=== PATIENT | male | born 1955 | race Caucasian/White ===

== ENCOUNTER 2020-09-11 08:21 | Emergency (ER) | payer MEDICAID ==
--- NOTE | 2020-09-11 08:39 | ED Physician Documentation ---
PD HPI DYSPNEA - Stated complaint Stated Complaint: SWELLING LEGS/ARMS. HIGH BP - Chief complaint Chief Complaint: Cardiac - History obtained from History obtained from: Patient - History of Present Illness Timing - onset: How many weeks ago (3-4) Timing - onset during: Light activity Timing - duration: Weeks (he states has noted onset of edema in lower legs that has increased and worsened to have marked edema in legs, up to testicles, and now even hands and some of face. Some dyspnea on exertion. No chest pain. Denies orthopnea.) Timing - details: Gradual onset, Still present Inciting event(s): No: URI, Immobilization/travel Improved by: Rest. No: Sitting up Worsened by: Exertion. No: Laying flat Associated symptoms: Bilateral edema. No: Fever, Cough, Wheezing, Chest pain / discomfort Similar symptoms before: Has not had sx before Recently seen: Not recently seen, Other (had COVID vaccine 2 months ago.) Review of Systems Constitutional: denies: Fever, Chills Nose: denies: Rhinorrhea / runny nose, Congestion Throat: denies: Sore throat Cardiac: reports: Pedal edema. denies: Chest pain / pressure, Palpitations, Calf pain Respiratory: reports: Dyspnea. denies: Cough, Wheezing GI: denies: Nausea, Vomiting, Diarrhea Skin: denies: Rash, Lesions Neurologic: reports: Generalized weakness, Headache. denies: Focal weakness, Numbness Psychiatric: denies: Depressed, Suicidal Endocrine: reports: Weight gain PD PAST MEDICAL HISTORY - Past Medical History Cardiovascular: None Respiratory: None Neuro: None Endocrine/Autoimmune: None GI: None - Present Medications Home Medications: Ambulatory Orders Medication Instructions Recorded Confirmed Furosemide [Lasix] 20 mg PO DAILY 30 Days #30 tablet 09/11/20 Losartan Potassium 25 mg PO DAILY 30 Days #30 tablet 09/11/20 - Allergies Allergies/Adverse Reactions: Allergies Allergy/AdvReac Type Severity Reaction Status Date / Time No Known Drug Allergies Allergy Verified 09/11/20 11:20 PD ED PE NORMAL - Vitals Vital signs reviewed: Yes - General General: Alert and oriented X 3, No acute distress, Well developed/nourished - HEENT HEENT: Moist mucous membranes, Pharynx benign - Neck Neck: Supple, no meningeal sign, No adenopathy - Cardiac Cardiac: RRR, No murmur - Respiratory Respiratory: Clear bilaterally - Abdomen Abdomen: Soft, Non tender - Male Male : Deferred - Rectal Rectal: Deferred - Back Back: No CVA TTP - Derm Derm: Normal color, Warm and dry - Extremities Extremities: No calf tenderness / cord, Other (2-3+ edema in both legs up to thighs. Some edema in hands and forearms. Puffy around eyes and cheeks. No JVD noted per se. ) - Neuro Neuro: Alert and oriented X 3, No motor deficit, Normal speech Eye Opening: Spontaneous Motor: Obeys Commands Verbal: Oriented GCS Score: 15 Results - Vitals Vitals: Vital Signs - 24 hr 09/11/20 09/11/20 09/11/20 08:30 09:35 11:18 Temperature 36.3 C L 36.4 C L Heart Rate 89 78 75 Respiratory 20 18 14 Rate Blood Pressure 175/101 H 168/98 H 167/127 H O2 Saturation 97 98 98 09/11/20 12:38 Temperature 36.7 C Heart Rate 65 Respiratory 16 Rate Blood Pressure 157/103 H O2 Saturation 98 Oxygen O2 Source Room air - Labs Labs: Laboratory Tests 09/11/20 09/11/20 09/11/20 09:45 09:45 09:45 WBC 6.8 RBC 4.59 L Hgb 14.9 Hct 43.5 MCV 94.8 H MCH 32.5 H MCHC 34.3 RDW 12.7 Plt Count 251 MPV 10.1 Neut # (Auto) 5.1 Lymph # (Auto) 1.1 L Jack # (Auto) 0.4 Eos # (Auto) 0.1 Baso # (Auto) 0.0 Absolute Nucleated RBC 0.00 Nucleated RBC % 0.0 Sodium 138 Potassium 4.0 Chloride 107 Carbon Dioxide 26 Anion Gap 5.0 L BUN 23 H Creatinine 1.0 Estimated GFR (MDRD) 75 L Glucose 84 Calcium 8.2 L Total Bilirubin 0.9 AST 23 ALT 16 Alkaline Phosphatase 64 Troponin I High Sens 4.0 B-Natriuretic Peptide Total Protein 4.8 L Albumin 1.7 L Globulin 3.1 Albumin/Globulin Ratio 0.5 L Lipase 36 TSH Urine Color Urine Clarity Urine pH Ur Specific [place] Urine Protein Urine Glucose (UA) Urine Ketones Urine Occult Blood Urine Nitrite Urine Bilirubin Urine Urobilinogen Ur Leukocyte Esterase Urine RBC Urine WBC Ur Squamous Epith Cells Urine Bacteria Urine Casts Ur Microscopic Review Urine Culture Comments Urine Creatinine Ur Total Protein Timed Protein/Creatinin Ratio 09/11/20 09/11/20 09/11/20 09:45 09:45 10:30 WBC RBC Hgb Hct MCV MCH MCHC RDW Plt Count MPV Neut # (Auto) Lymph # (Auto) Jack # (Auto) Eos # (Auto) Baso # (Auto) Absolute Nucleated RBC Nucleated RBC % Sodium Potassium Chloride Carbon Dioxide Anion Gap BUN Creatinine Estimated GFR (MDRD) Glucose Calcium Total Bilirubin AST ALT Alkaline Phosphatase Troponin I High Sens B-Natriuretic Peptide 57 Total Protein Albumin Globulin Albumin/Globulin Ratio Lipase TSH 2.94 Urine Color YELLOW Urine Clarity CLEAR Urine pH 5.5 Ur Specific [place]y 1.020 Urine Protein >=300 H Urine Glucose (UA) NEGATIVE Urine Ketones NEGATIVE Urine Occult Blood SMALL H Urine Nitrite NEGATIVE Urine Bilirubin NEGATIVE Urine Urobilinogen 0.2 (NORMAL) Ur Leukocyte Esterase NEGATIVE Urine RBC 0-5 Urine WBC 0-3 Ur Squamous Epith Cells NONE SEEN Urine Bacteria Rare Urine Casts 3-5 Course Granular Ur Microscopic Review INDICATED Urine Culture Comments NOT INDICATED Urine Creatinine Ur Total Protein Timed Protein/Creatinin Ratio 09/11/20 10:30 WBC RBC Hgb Hct MCV MCH MCHC RDW Plt Count MPV Neut # (Auto) Lymph # (Auto) Jack # (Auto) Eos # (Auto) Baso # (Auto) Absolute Nucleated RBC Nucleated RBC % Sodium Potassium Chloride Carbon Dioxide Anion Gap BUN Creatinine Estimated GFR (MDRD) Glucose Calcium Total Bilirubin AST ALT Alkaline Phosphatase Troponin I High Sens B-Natriuretic Peptide Total Protein Albumin Globulin Albumin/Globulin Ratio Lipase TSH Urine Color Urine Clarity Urine pH Ur Specific [place] Urine Protein Urine Glucose (UA) Urine Ketones Urine Occult Blood Urine Nitrite Urine Bilirubin Urine Urobilinogen Ur Leukocyte Esterase Urine RBC Urine WBC Ur Squamous Epith Cells Urine Bacteria Urine Casts Ur Microscopic Review Urine Culture Comments Urine Creatinine 35.1 Ur Total Protein Timed 350 Protein/Creatinin Ratio 10.0 H - Rads (name of study) chest xray Radiology: Prelim report reviewed (no infiltrates, normal vascularture.), See rad report PD MEDICAL DECISION MAKING - ED course Complexity details: reviewed results (no CHF noted. Does have low protein and albumin with large urine protein. Likely nephrotic syndrome. ), considered differential (consider CHF, renal failure, bladder outlet obstruction, allergic reaction, renal process such as nephrotic, anemia, other process. ), d/w patient, d/w customer service and sales consultant (talked with Nephrology measurement and verification engineer in [place], who does clinics at [facility], agrees with likely Dx. Hold steroids until biopsy can be done. Start Losartan and Lasix. She will have office call pt and be seen at [facility] this coming Wednesday or the following week. Asks that pt get labs checked 1 wk.) Departure - Departure Disposition: 01 Home, Self Care Clinical Impression: Generalized edema, Nephrotic syndrome Condition: Stable Record reviewed to determine appropriate education?: Yes Instructions: ED Nephrotic Syndrome Follow-Up: [facility] [Provider Group] Prescriptions: Furosemide [Lasix] 20 mg PO DAILY 30 Days #30 tablet Losartan Potassium 25 mg PO DAILY 30 Days #30 tablet Comments: I talked with the elementary spanish teacher from [place] and got guidance on the initial medications for you. She does do clinics here it would be health in the day care worker clinic. Her office will call you today to set up the soonest available appointment. This may be this coming Wednesday or if not the next clinic after that. Alternatively you may be able to see her in [place] for the initial visit anyway. We do want to start losartan blood pressure medicine daily at 25 mg and furosemide diuretic 20 mg daily. The doses of these may be increased after the first week or 2 if not responding well enough. Call your primary care office to reestablish care and try to get a follow-up in the next week or 2 as well. The elementary spanish teacher does asked that we recheck your chemistry panel which includes kidney function and electrolytes as well as the protein and albumin levels in your bloodstream. She would like to check the protein levels in your urine as well in the protein to albumin ratio. The short version of that is if you are unable to get into your primary care or the elementary spanish teacher in the next week or so, then go to one of the walk-in clinics to have your blood and urine test done. We want to make sure there not affected too much by the new medications. Discharge Date/Time: 09/11/20 13:02
[2020-09-11] MEDS ORDERED: FUROSEMIDE 40 MG/4 ML VIAL IVP STA (09:21)
--- NOTE | 2020-09-11 09:39 | XRAY Report ---
PROCEDURE: Chest 1 View X-Ray INDICATIONS: Chest pain TECHNIQUE: One view of the chest was acquired. COMPARISON: None FINDINGS: Surgical changes and devices: None. Lungs and pleura: No pleural effusions or pneumothorax. Lungs are clear. Mediastinum: Mediastinal contours appear normal. Heart size is normal. Bones and chest wall: No suspicious bony lesions. Overlying soft tissues appear unremarkable. IMPRESSION: No acute cardiopulmonary disease process. Reviewed by: Angelita Wang MD, PhD on 09/11/2020 9:37 AM PDT Approved by: Angelita Wang MD, PhD on 09/11/2020 9:37 AM PDT Station ID: [id number]
[2020-09-11 10:02] LABS: BASOPHILS % (AUTO) 0.4 %; EOSINOPHILS # (AUTO) 0.1 10^3/uL (0.0-0.7); EOSINOPHILS % (AUTO) 1.3 %; HCT - HEMATOCRIT 43.5 % (42.0-52.0); HGB - HEMOGLOBIN 14.9 g/dL (14.0-18.0); LYMPHOCYTES # (AUTO) 1.1 10^3/uL (1.5-3.5); LYMPHOCYTES % (AUTO) 16.7 %; MEAN CORPUSCULAR HEMOGLOBIN 32.5 pg (27.0-31.0); MEAN CORPUSCULAR HGB CONC 34.3 g/dL (32.0-36.0); MEAN CORPUSCULAR VOLUME 94.8 fL (80.0-94.0); MEAN PLATELET VOLUME 10.1 fL (7.4-11.4); MONOCYTES # (AUTO) 0.4 10^3/uL (0.0-1.0); MONOCYTES % (AUTO) 6.4 %; NEUTROPHILS # (AUTO) 5.1 10^3/uL (1.5-6.6); NEUTROPHILS % (AUTO) 74.6 %; PLT - PLATELET COUNT 251 10^3/uL (130-450); RED BLOOD COUNT 4.59 10^6/uL (4.70-6.10); RED CELL DISTRIBUTION WIDTH 12.7 % (12.0-15.0); WHITE BLOOD COUNT 6.8 x10^3/uL (4.8-10.8)
[2020-09-11 10:19] LABS: ALBUMIN 1.7 g/dL (3.2-5.5); ALBUMIN/GLOBULIN RATIO 0.5 (1.0-2.2); BILIRUBIN,TOTAL 0.9 mg/dL (0.2-1.0); CALCIUM 8.2 mg/dL (8.5-10.3); TOTAL PROTEIN 4.8 g/dL (6.7-8.2)
[2020-09-11 10:46] LABS: BILIRUBIN,URINE NEGATIVE (NEGATIVE); GLUCOSE, URINE (UA) NEGATIVE (NEGATIVE); KETONES,URINE (UA) NEGATIVE (NEGATIVE); LEUKOCYTE ESTERASE, URINE NEGATIVE (NEGATIVE); NITRITE,URINE NEGATIVE (NEGATIVE); OCCULT BLOOD,URINE SMALL (NEGATIVE); PH,URINE 5.5 PH (5.0-7.5); PROTEIN,URINE >=300 mg/dL (NEGATIVE); UROBILINOGEN,URINE 0.2 (NORMAL) E.U./dL (NORMAL)
[2020-09-11 10:51] LABS: CLARITY,URINE CLEAR (CLEAR)
[2020-09-11 11:12] LABS: BACTERIA,URINE Rare /HPF (None Seen); CASTS, URINE 3-5 Course Granular /LPF; RBC,URINE 0-5 /HPF (0-5); SQUAMOUS EPITHELIAL CELL,UR NONE SEEN (<= Few); WBC,URINE 0-3 /HPF (0-3)
[2020-09-11] MEDS ORDERED: LOSARTAN 50 MG TABLET PO STA (12:12)
[2020-09-11 12:39] VITALS: BP 157/103
[2020-09-11 13:17] LABS: CREATININE,URINE 35.1 mg/dL
== END 2020-09-11 13:02 | disposition home or self-care (01) ==
LOC: EDBD → ED 08:21 → MERGE 08:21 → ED 13:02
DX: N04.9 Nephrotic syndrome with unspecified morphologic changes (principal); R60.1 Generalized edema
CPT/HCPCS: 36415; 71045; 80053; 81001; 82570; 83690; 83880; 84156; 84443; 84484; 85025; 93005; 96374; 99284; A9270; 81003; 87086

== ENCOUNTER 2020-09-24 08:57 | Outpatient (CLI) | payer MEDICAID ==
[2020-09-24 13:36] LABS: BILIRUBIN,URINE NEGATIVE (NEGATIVE); CLARITY,URINE CLEAR (CLEAR); GLUCOSE, URINE (UA) NEGATIVE (NEGATIVE); KETONES,URINE (UA) NEGATIVE (NEGATIVE); LEUKOCYTE ESTERASE, URINE NEGATIVE (NEGATIVE); NITRITE,URINE NEGATIVE (NEGATIVE); OCCULT BLOOD,URINE SMALL (NEGATIVE); PH,URINE 5.5 PH (5.0-7.5); PROTEIN,URINE >=300 mg/dL (NEGATIVE); UROBILINOGEN,URINE 0.2 (NORMAL) E.U./dL (NORMAL)
[2020-09-24 13:46] LABS: BACTERIA,URINE Few /HPF (None Seen); RBC,URINE 0-5 /HPF (0-5); SQUAMOUS EPITHELIAL CELL,UR RARE Squamous (<= Few); WBC,URINE 0-3 /HPF (0-3)
[2020-09-24 13:50] LABS: ALBUMIN 1.9 g/dL (3.2-5.5); BUN - BLOOD UREA NITROGEN 28 mg/dL (6-20); CALCIUM 8.1 mg/dL (8.5-10.3); CARBON DIOXIDE - CO2 27 mmol/L (21-32); CHLORIDE 100 mmol/L (101-111); CHOL/HDL RATIO 12.5 (<5.0); CHOLESTEROL 601 mg/dL; GFR - MDRD 75 (>89); GLUCOSE 107 mg/dL (70-100); HDL CHOLESTEROL 48 mg/dL; LDL CHOLESTEROL,CALCULATED 482 mg/dL; PHOSPHORUS 2.6 mg/dL (2.5-4.6); SODIUM 134 mmol/L (135-145); TRIGLYCERIDES 353 mg/dL; VLDL CHOLESTEROL 71 mg/dL
[2020-09-24 14:15] LABS: CREATININE,URINE 134.9 mg/dL; PROTEIN/CREATININE RATIO,URINE 4.6 (<=0.2)
[2020-09-24 14:17] LABS: RHEUMATOID FACTOR NEGATIVE (Negative)
[2020-09-25 12:12] LABS: HEPATITIS C ANTIBODY NON-REACTIVE (NON-REACTIVE)
[2020-09-25 12:47] LABS: HEPATITIS B SURFACE ANTIGEN NON-REACTIVE (NON-REACTIVE)
[2020-09-25 12:56] LABS: HEPATITIS B CORE AB TOTAL NON-REACTIVE (NON-REACTIVE)
[2020-09-25 15:51] LABS: HIV AG/AB 4TH GEN NON-REACTIVE (NON-REACTIVE)
[2020-09-26 11:15] LABS: COMPLEMENT COMPONENT C3C 185 mg/dL (82-185); COMPLEMENT COMPONENT C4C 38 mg/dL (15-53)
[2020-09-27 12:55] LABS: ANA SCREEN NEGATIVE (NEGATIVE)
[2020-10-01 22:16] LABS: KAPPA/LAMBDA LC FREE RATIO 1.43 (0.26-1.65)
== END 2020-09-24 08:58 | disposition home or self-care (01) ==
LOC: LAB.N 08:57
PROVIDERS: ATTEND Internal Medicine Nephrology
DX: N04.9 Nephrotic syndrome with unspecified morphologic changes (principal)
CPT/HCPCS: 36415; 80061; 80069; 81001; 81599; 82570; 83520; 83721; 83883; 84155; 84156; 84165; 86021; 86038; 86160; 86317; 86430; 86704; 86803; 87086; 87340; 87389

== ENCOUNTER 2020-11-08 08:10 | Outpatient (CLI) | payer MEDICAID ==
[2020-11-08 13:45] LABS: ALBUMIN 2.4 g/dL (3.2-5.5); CALCIUM 8.8 mg/dL (8.5-10.3); CREATININE 1.4 mg/dL (0.6-1.2); PHOSPHORUS 4.2 mg/dL (2.5-4.6); POTASSIUM 4.1 mmol/L (3.5-5.0)
[2020-11-08 14:33] LABS: CREATININE,URINE 54.5 mg/dL; PROTEIN/CREATININE RATIO,URINE 1.7 (<=0.2)
== END 2020-11-08 08:11 | disposition home or self-care (01) ==
LOC: LAB.N 08:10
PROVIDERS: ATTEND Internal Medicine Nephrology
DX: R80.9 Proteinuria, unspecified (principal); N04.9 Nephrotic syndrome with unspecified morphologic changes; N05.0 Unspecified nephritic syndrome with minor glomerular abnormality
CPT/HCPCS: 36415; 80069; 82570; 84156

== ENCOUNTER 2020-12-04 07:46 | Outpatient (CLI) | payer MEDICAID ==
[2020-12-04 12:12] LABS: CREATININE,URINE 106.4 mg/dL
[2020-12-04 12:13] LABS: TOTAL PROTEIN,URINE TIMED < 6 mg/dL
[2020-12-04 13:29] LABS: ALBUMIN 3.7 g/dL (3.2-5.5); CALCIUM 9.1 mg/dL (8.5-10.3); PHOSPHORUS 2.7 mg/dL (2.5-4.6); POTASSIUM 3.2 mmol/L (3.5-5.0)
== END 2020-12-04 07:47 | disposition home or self-care (01) ==
LOC: LAB.N 07:46
PROVIDERS: ATTEND Internal Medicine Nephrology
DX: R80.9 Proteinuria, unspecified (principal); N04.9 Nephrotic syndrome with unspecified morphologic changes; N05.0 Unspecified nephritic syndrome with minor glomerular abnormality
CPT/HCPCS: 36415; 80069; 82570; 84156

== ENCOUNTER 2021-01-03 07:47 | Outpatient (CLI) | payer MEDICAID ==
[2021-01-03 12:37] LABS: ALBUMIN 4.2 g/dL (3.2-5.5); CALCIUM 9.4 mg/dL (8.5-10.3); CREATININE 1.2 mg/dL (0.6-1.2); PHOSPHORUS 3.1 mg/dL (2.5-4.6)
[2021-01-03 13:21] LABS: CREATININE,URINE 16.2 mg/dL
[2021-01-03 13:29] LABS: TOTAL PROTEIN,URINE TIMED < 6 mg/dL
== END 2021-01-03 07:48 | disposition home or self-care (01) ==
LOC: LAB.N 07:47
PROVIDERS: ATTEND Internal Medicine Nephrology
DX: N04.9 Nephrotic syndrome with unspecified morphologic changes (principal); N05.0 Unspecified nephritic syndrome with minor glomerular abnormality; R80.9 Proteinuria, unspecified
CPT/HCPCS: 36415; 80069; 82570; 84156

== ENCOUNTER 2021-02-07 09:00 | Outpatient (CLI) | payer MEDICAID ==
[2021-02-07 12:47] LABS: ALBUMIN 3.7 g/dL (3.2-5.5); CALCIUM 9.1 mg/dL (8.5-10.3); CREATININE 1.1 mg/dL (0.6-1.2); PHOSPHORUS 2.9 mg/dL (2.5-4.6); POTASSIUM 3.5 mmol/L (3.5-5.0)
[2021-02-07 18:38] LABS: PROTEIN/CREATININE RATIO,URINE 0.1 (<=0.2)
== END 2021-02-07 09:01 | disposition home or self-care (01) ==
LOC: LAB.N 09:00
PROVIDERS: ATTEND Internal Medicine
DX: R80.9 Proteinuria, unspecified (principal); N04.9 Nephrotic syndrome with unspecified morphologic changes; N05.0 Unspecified nephritic syndrome with minor glomerular abnormality
CPT/HCPCS: 36415; 80069; 82570; 84156

== ENCOUNTER 2021-02-10 09:05 | Emergency (ER) | payer MEDICAID ==
--- NOTE | 2021-02-10 09:25 | ED Physician Documentation ---
PD HPI LOWER EXT INJURY - Stated complaint Stated Complaint: RIGHT LEG INJURY - Chief complaint Chief Complaint: Ext Problem - History obtained from History obtained from: Patient - History of Present Illness PD HPI LOW EXT INJURY LOCATION: Right, Thigh Type of injury: Twist (he states had mild pain in thigh with walking few days ago, but no fall nor notable injury. Has since noted onset of swelling and ecchymosis right thigh, with today being a large area of bruising. Minimal to no pain in the area. Some swelling of thigh and upper calf today.). No: Fall, Blunt / blow Where injury occurred: Home Timing - onset: How many days ago (few) Timing - duration: Days (few) Timing - details: Gradual onset Worsened by: Palpating Associated symptoms: Swelling, Discolored (large area purple bruising). No: Weakness, Numbness Contributing factors: No: Anticoagulated Similar symptoms before: Has not had sx before Recently seen: Not recently seen Review of Systems Constitutional: denies: Fever, Chills Skin: denies: Rash, Lesions Musculoskeletal: reports: Back pain (chronic, with radiation down right leg, with prior mild atrophy of right leg muscles, so usually smaller than left leg muscles.) Neurologic: denies: Focal weakness, Numbness PD PAST MEDICAL HISTORY - Past Medical History Cardiovascular: None Respiratory: None Neuro: None Endocrine/Autoimmune: None GI: None : Other (nephrotic minimal change disease and has been on steroids for few months. He states edema has improved greatly. ) HEENT: None Psych: None Musculoskeletal: None, Chronic back pain Derm: None - Past Surgical History Past Surgical History: Yes Ortho: Spine surgery - Present Medications Home Medications: Ambulatory Orders Medication Instructions Recorded Confirmed Aspirin [Nayana] 325 mg PO DAILY 02/10/21 02/10/21 Atorvastatin [Lipitor] 20 mg PO DAILY 02/10/21 02/10/21 Furosemide [Lasix] 80 mg PO DAILY 02/10/21 02/10/21 Losartan Potassium 50 mg PO DAILY 02/10/21 02/10/21 Omeprazole Magnesium 20 mg PO DAILY 02/10/21 02/10/21 predniSONE [Deltasone] 20 mg PO DAILY 02/10/21 02/10/21 - Allergies Allergies/Adverse Reactions: Allergies Allergy/AdvReac Type Severity Reaction Status Date / Time No Known Drug Allergies Allergy Verified 02/10/21 09:10 - Social History Does the pt smoke?: No Smoking Status: Never smoker Does the pt drink ETOH?: No Does the pt have substance abuse?: No - Immunizations Immunizations are current?: Yes - POLST Patient has POLST: No PD ED PE NORMAL - Vitals Vital signs reviewed: Yes - General General: Alert and oriented X 3, No acute distress, Well developed/nourished - Back Back: No CVA TTP - Derm Derm: Other (large area purple ecchymosis without tenderness most of ti on right inner and posterior thigh. There is small fluctuant area lower medial thigh c/w likely hematoma. Mild tender. ) - Extremities Extremities: Other (there is local swelling and mild tender medial lower thigh. SOme fullness and mild tender popliteal, presume blood gravitating there with subsequent swelling. Bruising noted in that area as well. ) - Neuro Neuro: No motor deficit, No sensory deficit Results - Vitals Vitals: Vital Signs - 24 hr 02/10/21 10:43 Heart Rate 88 Respiratory 16 Rate Blood Pressure 111/79 O2 Saturation 100 Oxygen O2 Source Room air - Labs Labs: Laboratory Tests 02/10/21 09:55 WBC 14.5 H RBC 4.31 L Hgb 14.2 Hct 41.7 L MCV 96.8 H MCH 32.9 H MCHC 34.1 RDW 13.9 Plt Count 224 MPV 9.3 Neut # (Auto) 11.6 H Lymph # (Auto) 1.5 [place] # (Auto) 0.5 Eos # (Auto) 0.0 Baso # (Auto) 0.1 Absolute Nucleated RBC 0.00 Nucleated RBC % 0.0 Manual Slide Review Indicated WBC Morphology NORMAL APPEARANCE Platelet Estimate NORMAL (130-450,000) Platelet Morphology NORMAL APPEARANCE RBC Morph Micro Appear NORMAL APPEARANCE - Rads (name of study) duplex right leg Radiology: Prelim report reviewed (no clots. ), See rad report PD MEDICAL DECISION MAKING - ED course Complexity details: considered differential (seems muscular/small vessel injury with local hematoma, that is now leaching to surface in thigh. Can get U/S to ensure not leading to DVT since has some tender in poplitieal area. ), d/w patient Departure - Departure Disposition: 01 Home, Self Care Clinical Impression: Hematoma Muscle strain of thigh Qualifiers: Encounter type: initial encounter Laterality: right Qualified Code(s): S76.911A - Strain of unspecified muscles, fascia and tendons at thigh level, right thigh, initial encounter Clinical Impression: (Ruled Out): Deep vein thrombosis Condition: Stable Record reviewed to determine appropriate education?: Yes Instructions: ED Hematoma Follow-Up: Anselmo Bermudez MD [Primary Care Provider] - Comments: You have a hematoma in the thigh which is a collection of blood in the soft tissue. In your case, it likely came from a small tear of some muscle fibers and us blood vessel in the area. It would be uncommon for it to be continuing to bleed but had collected there and is now coming to the surface causing the diffuse bruising. The ultrasound did not show any signs of clotting in the deep veins. You can use some warm towels periodically through the day to help soften the blood still collected in the tissue and promote absorption. Otherwise is just time for the blood to absorb back into your system. It will lead to the surface and gravitate downward so you will have the diffuse bruising on the thigh as you have and may spread into the lower leg as well. It can cause some mild swelling related to the blood in the tissue. Continue usual medications and activity. Your blood count and platelet count are good. Follow-up with your coronary clinical specialist as planned regarding the kidney function tests but they are looking pretty good. Discharge Date/Time: 02/10/21 10:45
[2021-02-10 10:01] LABS: BASOPHILS # (AUTO) 0.1 10^3/uL (0.0-0.1); BASOPHILS % (AUTO) 0.5 %; EOSINOPHILS % (AUTO) 0.1 %; HCT - HEMATOCRIT 41.7 % (42.0-52.0); HGB - HEMOGLOBIN 14.2 g/dL (14.0-18.0); LYMPHOCYTES # (AUTO) 1.5 10^3/uL (1.5-3.5); LYMPHOCYTES % (AUTO) 10.3 %; MEAN CORPUSCULAR HEMOGLOBIN 32.9 pg (27.0-31.0); MEAN CORPUSCULAR HGB CONC 34.1 g/dL (32.0-36.0); MEAN CORPUSCULAR VOLUME 96.8 fL (80.0-94.0); MEAN PLATELET VOLUME 9.3 fL (7.4-11.4); MONOCYTES # (AUTO) 0.5 10^3/uL (0.0-1.0); MONOCYTES % (AUTO) 3.7 %; NEUTROPHILS # (AUTO) 11.6 10^3/uL (1.5-6.6); NEUTROPHILS % (AUTO) 80.1 %; PLT - PLATELET COUNT 224 10^3/uL (130-450); RED BLOOD COUNT 4.31 10^6/uL (4.70-6.10); RED CELL DISTRIBUTION WIDTH 13.9 % (12.0-15.0); WHITE BLOOD COUNT 14.5 x10^3/uL (4.8-10.8)
[2021-02-10 10:03] LABS: SLIDE REVIEW? Indicated
[2021-02-10 10:40] LABS: PLATELET ESTIMATE, MANUAL NORMAL (130-450,000) (NORMAL); PLATELET MORPHOLOGY NORMAL APPEARANCE (NORMAL); RBC MORPHOLOGY (MULTIPLE) NORMAL APPEARANCE (NORMAL); WBC MORPHOLOGY (MULTIPLE) NORMAL APPEARANCE (NORMAL)
--- NOTE | 2021-02-10 10:41 | Ultrasound Report ---
PROCEDURE: Duplex Ext Veins Right INDICATIONS: hematoma right thigh; eval for resulting DVT TECHNIQUE: Real-time imaging, as well as color and pulse Doppler interrogation, were performed of the lower extr emity deep veins from the inguinal ligament to the popliteal fossa. COMPARISON: None. FINDINGS: The deep veins are normally compressible, and free of intraluminal thrombus. Color and pu lse Doppler demonstrate normal phasic intraluminal flow. There is normal augmentation response to di stal compression maneuver. In the area of bruise, there is prominent subcutaneous heterogeneous fluid collection measuring 4.8 x 2.2 x 4.4 cm. No internal vascular flow. IMPRESSION: 1. No DVT in the right lower extremity. 2. Subcutaneous hematoma in the area of distal thigh bruise. Reviewed by: Faith Villatoro MD on 02/10/2021 10:40 AM [facility] Approved by: Faith Villatoro MD on 02/10/2021 10:40 AM [facility] Station ID: [id number]
[2021-02-10 10:43] VITALS: BP 111/79
== END 2021-02-10 10:45 | disposition home or self-care (01) ==
LOC: ED 09:05
DX: S76.911A Strain of unspecified muscles, fascia and tendons at thigh level, right thigh, initial encounter (principal); X50.1XXA Overexertion from prolonged static or awkward postures, initial encounter; Y93.01 Activity, walking, marching and hiking; Y92.009 Unspecified place in unspecified non-institutional (private) residence as the place of occurrence of the external cause; M79.81 Nontraumatic hematoma of soft tissue
CPT/HCPCS: 36415; 85025; 99282; 99284

== ENCOUNTER 2021-04-02 08:50 | Outpatient (CLI) | payer MEDICAID ==
[2021-04-02 12:37] LABS: CALCIUM 9.7 mg/dL (8.5-10.3); CREATININE 1.1 mg/dL (0.6-1.2); POTASSIUM 4.2 mmol/L (3.5-5.0)
== END 2021-04-02 08:51 | disposition home or self-care (01) ==
LOC: LAB.N 08:50
PROVIDERS: ATTEND Internal Medicine Nephrology
DX: N04.9 Nephrotic syndrome with unspecified morphologic changes (principal); N05.0 Unspecified nephritic syndrome with minor glomerular abnormality; R80.9 Proteinuria, unspecified
CPT/HCPCS: 36415; 80069; 82570; 84156

== ENCOUNTER 2021-04-03 07:41 | Outpatient (CLI) | payer MEDICAID ==
--- NOTE | 2021-04-03 10:44 | XRAY Report ---
PROCEDURE: Knee 4 View RT INDICATIONS: KNEE PAIN TECHNIQUE: 4 views of the right knee(s) were acquired. COMPARISON: None. FINDINGS: Bones: No fractures or dislocations. No suspicious bony lesions. Mild tricompartmental periareolar articular osteophyte formation. Soft tissues: Small knee joint effusion. Thickening of the quadriceps and patellar tendon. No suspici ous soft tissue calcifications. IMPRESSION: 1. Osteoarthritis. 2. Findings suggestive of quadriceps and patellar tendinopathy. This could be further assessed with M RI, if clinically indicated. 3. No acute fracture. No osseous lesion. If symptoms and/or clinical suspicion for pathology continue , further assessment with repeat plain films, or advanced imaging (e.g., CT, MRI, or bone scan) is re commended for further assessment. Reviewed by: Aguilar Yates MD on 04/03/2021 10:42 AM PST Approved by: Aguilar Yates MD on 04/03/2021 10:42 AM PST Station ID: [id number]
== END 2021-04-03 07:42 | disposition home or self-care (01) ==
LOC: DI.WOS 07:41
PROVIDERS: ATTEND Orthopaedic Surgery
DX: M17.11 Unilateral primary osteoarthritis, right knee (principal); R93.6 Abnormal findings on diagnostic imaging of limbs; R93.89 Abnormal findings on diagnostic imaging of other specified body structures

== ENCOUNTER 2021-05-16 09:17 | Outpatient (CLI) | payer MEDICAID ==
[2021-05-16 12:59] LABS: CALCIUM 9.8 mg/dL (8.5-10.3); PHOSPHORUS 2.6 mg/dL (2.5-4.6); POTASSIUM 4.4 mmol/L (3.5-5.0)
== END 2021-05-16 09:18 | disposition home or self-care (01) ==
LOC: LAB.N 09:17
PROVIDERS: ATTEND Internal Medicine Nephrology
DX: I10 Essential (primary) hypertension (principal); N05.0 Unspecified nephritic syndrome with minor glomerular abnormality
CPT/HCPCS: 36415; 80069; 81599; 82570; 84156

== ENCOUNTER 2021-06-05 09:25 | Outpatient (CLI) | payer MEDICAID ==
[2021-06-05 12:19] LABS: ALBUMIN 4.1 g/dL (3.2-5.5); CALCIUM 9.5 mg/dL (8.5-10.3); PHOSPHORUS 3.3 mg/dL (2.5-4.6); POTASSIUM 3.7 mmol/L (3.5-5.0)
== END 2021-06-05 09:26 | disposition home or self-care (01) ==
LOC: LAB.N 09:25
PROVIDERS: ATTEND Internal Medicine Nephrology
DX: N05.0 Unspecified nephritic syndrome with minor glomerular abnormality (principal); I10 Essential (primary) hypertension
CPT/HCPCS: 36415; 80069; 82570; 84156

== ENCOUNTER 2021-07-02 10:23 | Outpatient (CLI) | payer MEDICAID ==
[2021-07-02 10:54] LABS: CREATININE,URINE 226.7 mg/dL
[2021-07-02 10:57] LABS: CALCIUM 9.3 mg/dL (8.5-10.3); PHOSPHORUS 2.8 mg/dL (2.5-4.6); POTASSIUM 3.7 mmol/L (3.5-5.0)
== END 2021-07-02 10:24 | disposition home or self-care (01) ==
LOC: LAB 10:23
PROVIDERS: ATTEND Internal Medicine Nephrology
DX: I10 Essential (primary) hypertension (principal); N05.0 Unspecified nephritic syndrome with minor glomerular abnormality
CPT/HCPCS: 36415; 80069; 82570; 84156

== ENCOUNTER 2021-11-10 09:05 | Outpatient (CLI) | payer MEDICAID ==
[2021-11-10 09:33] LABS: CREATININE,URINE 67.5 mg/dL
[2021-11-10 09:33] LABS: ALBUMIN 4.2 g/dL (3.2-5.5); CALCIUM 9.2 mg/dL (8.5-10.3); PHOSPHORUS 3.3 mg/dL (2.5-4.6); POTASSIUM 4.1 mmol/L (3.5-5.0)
[2021-11-10 09:48] LABS: TOTAL PROTEIN,URINE TIMED < 6 mg/dL
== END 2021-11-10 09:06 | disposition home or self-care (01) ==
LOC: LAB 09:05
PROVIDERS: ATTEND Internal Medicine Nephrology
DX: I10 Essential (primary) hypertension (principal); N05.0 Unspecified nephritic syndrome with minor glomerular abnormality
CPT/HCPCS: 36415; 80069; 82570; 84156

== ENCOUNTER 2022-03-11 09:25 | Outpatient (CLI) | payer MEDICAID, MEDICARE ==
[2022-03-11 09:48] LABS: ALBUMIN 4.2 g/dL (3.2-5.5); CALCIUM 9.5 mg/dL (8.5-10.3); PHOSPHORUS 3.1 mg/dL (2.5-4.6)
[2022-03-11 10:11] LABS: CREATININE,URINE 194.2 mg/dL
== END 2022-03-11 09:26 | disposition home or self-care (01) ==
LOC: LAB 09:25
PROVIDERS: ATTEND Internal Medicine Nephrology
DX: N05.0 Unspecified nephritic syndrome with minor glomerular abnormality (principal)
CPT/HCPCS: 36415; 80069; 82306; 82570; 84156

== ENCOUNTER 2022-07-23 08:14 | Outpatient (CLI) | payer MEDICARE, MEDICAID ==
[2022-07-23 08:54] LABS: ALBUMIN 4.5 g/dL (3.2-5.5); CALCIUM 9.4 mg/dL (8.5-10.3); PHOSPHORUS 3.3 mg/dL (2.5-4.6); POTASSIUM 4.1 mmol/L (3.5-5.0)
[2022-07-23 09:03] LABS: CREATININE,URINE 106.2 mg/dL; PROTEIN/CREATININE RATIO,URINE 0.1 (<=0.2)
== END 2022-07-23 08:15 | disposition home or self-care (01) ==
LOC: LAB 08:14
PROVIDERS: ATTEND Internal Medicine Nephrology
DX: I10 Essential (primary) hypertension (principal); N05.0 Unspecified nephritic syndrome with minor glomerular abnormality
CPT/HCPCS: 36415; 80069; 82570; 84156

== ENCOUNTER 2022-09-23 08:20 | Outpatient (CLI) | payer MEDICARE, MEDICAID ==
[2022-09-23 08:45] LABS: CREATININE,URINE 108.7 mg/dL; PROTEIN/CREATININE RATIO,URINE 0.1 (<=0.2)
[2022-09-23 08:46] LABS: ALBUMIN 4.2 g/dL (3.2-5.5); CALCIUM 9.7 mg/dL (8.5-10.3); PHOSPHORUS 3.1 mg/dL (3.7-7.2)
== END 2022-09-23 08:21 | disposition home or self-care (01) ==
LOC: LAB 08:20
PROVIDERS: ATTEND Internal Medicine Nephrology
DX: N05.0 Unspecified nephritic syndrome with minor glomerular abnormality (principal); I10 Essential (primary) hypertension
CPT/HCPCS: 36415; 80069; 82570; 84156

== ENCOUNTER 2022-12-01 08:45 | Outpatient (CLI) | payer MEDICARE, MEDICAID ==
[2022-12-01 09:12] LABS: ALBUMIN 4.2 g/dL (3.2-5.5); CALCIUM 9.3 mg/dL (8.5-10.3); CREATININE 0.9 mg/dL (0.6-1.3); PHOSPHORUS 2.4 mg/dL (2.5-5.0); POTASSIUM 3.7 mmol/L (3.5-4.5)
[2022-12-01 10:30] LABS: CREATININE,URINE 193.2 mg/dL; PROTEIN/CREATININE RATIO,URINE 0.1 (<=0.2)
== END 2022-12-01 08:46 | disposition home or self-care (01) ==
LOC: LAB 08:45
PROVIDERS: ATTEND Internal Medicine Nephrology
DX: N05.0 Unspecified nephritic syndrome with minor glomerular abnormality (principal); I10 Essential (primary) hypertension
CPT/HCPCS: 36415; 80069; 82570; 84156

== ENCOUNTER 2023-04-20 15:04 | Outpatient (CLI) | payer MEDICARE, MEDICAID ==
[2023-04-20 15:51] LABS: ALBUMIN 4.3 g/dL (3.2-5.5); CALCIUM 9.6 mg/dL (8.5-10.3); PHOSPHORUS 2.6 mg/dL (2.5-5.0); POTASSIUM 3.7 mmol/L (3.5-4.5)
[2023-04-20 15:51] LABS: TOTAL PROTEIN,URINE TIMED < 4 mg/dL
== END 2023-04-20 15:05 | disposition home or self-care (01) ==
LOC: LAB 15:04
PROVIDERS: ATTEND Internal Medicine Nephrology
DX: N05.0 Unspecified nephritic syndrome with minor glomerular abnormality (principal); I10 Essential (primary) hypertension
CPT/HCPCS: 36415; 80069; 82570; 84156

== ENCOUNTER 2023-10-26 08:29 | Outpatient (CLI) | payer MEDICARE, MEDICAID ==
[2023-10-26 09:20] LABS: CALCIUM 9.2 mg/dL (8.5-10.3); PHOSPHORUS 2.7 mg/dL (2.5-5.0); POTASSIUM 4.3 mmol/L (3.5-4.5)
[2023-10-26 10:17] LABS: CREATININE,URINE 150.3 mg/dL; PROTEIN/CREATININE RATIO,URINE 0.1 (<=0.2)
== END 2023-10-26 08:30 | disposition home or self-care (01) ==
LOC: LAB 08:29
PROVIDERS: ATTEND Internal Medicine Nephrology
DX: I10 Essential (primary) hypertension (principal); N05.0 Unspecified nephritic syndrome with minor glomerular abnormality
CPT/HCPCS: 36415; 80069; 82570; 84156